=== PATIENT | male | born 1965 | race Hispanic/Latino ===

== ENCOUNTER 2016-10-27 13:22 | Emergency (ER) | payer OTHER ==
[~2016-10-27] VITALS: Ht 165.1 cm; Wt 63.5 kg
[2016-10-27 13:30] VITALS: BP 114/68
--- NOTE | 2016-10-27 14:51 | ED EYE COMPLAINT ---
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 STATES HE HAS BEEN RINSING IT OUT WITH WARM WATER BUT THIS AM WHEN HE WOKE UP HE COULD BARELY OPEN HIS EYE. L EYE NOTED TO BE RED. DENIES PAIN TO EYE AT THIS TIME. STATES VISION IS NORMAL IN L EYE. Triage Nurses Notes Reviewed? yes Onset: Abrupt Duration: constant Timing: recent history Severity: mild Severity Numbers: 3 HPI: Patient is a 51-year-old male who presents emergency and that yesterday while outside he believes that he got something stuck in his left eye and since she's been complaining of clear discharge foreign-body sensation blurred vision and mild discomfort to his eye. Tetanus is up-to-date. No medications given prior to arrival. Past History Travel History Traveled to [place] past 21 day No Medical History Any Pertinent Medical History? 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 No Review of Systems Review of Systems Constitutional: Reports: no symptoms. Eyes: Reports: see HPI, blurred vision, drainage, foreign body sensation, inflammation. Ear: Reports: no symptoms. Nose: Reports: no symptoms. Mouth: Reports: no symptoms. Throat: Reports: no symptoms. Respiratory: Reports: no symptoms. Cardiovascular: Reports: no symptoms. GI: Reports: no symptoms. Genitourinary: Reports: no symptoms. Musculoskeletal: Reports: no symptoms. Skin: Reports: no symptoms. Neurological/Psychological: Reports: no symptoms. Hematologic/Endocrine: Reports: no symptoms. Immunologic/Allergic: Reports: no symptoms. All Other Systems: Reviewed and Negative Physical Exam General Appearance: well developed/nourished, no apparent distress, alert General Inspection: SCLERAL INJECTION NOTED Eyelid: normal inspection Conjunctiva/Sclera: injected Cornea: examined w/fluorescein, foreign body, fluorescein dye uptake EOM: intact Pupil: normal accommodation, normal pupil, PERRL Anterior Chamber: normal inspection Eye Left 1) 1MM CIRCULAR WELL DEFINED FLUOROSCEINE UPTAKE NOTED General Inspection: normal inspection Eyelid: normal inspection Conjunctiva/Sclera: normal inspection Cornea: normal inspection EOM: intact Pupil: normal accommodation, normal pupil, PERRL Physical Exam Head: atraumatic Nose: normal inspection Mouth/Throat: normal mouth inspection Neck: normal inspection Neurologic/Psych: no motor/sensory deficits, awake, alert Skin: intact Progress Differential Diagnosis: corneal abrasion, corneal foreign body, conjunctivitis, detached retina, glaucoma, globe rupture, retinal art./v. occlusion Plan of Care: After FLOUROSCEINE uptake was performed there was noted concern of foreign body in which using a weighted cotton swab running over the foreign body there was a black speck that was removed Patient also had significant resolution of his presenting complaints afterwards. Patient was strongly advised however to follow up with ophthalmology tomorrow. Patient will be treated for corneal abrasion and resolved foreign body PT WAS PERRLA Departure Departure Disposition: HOME OR SELF CARE Condition: Stable Clinical Impression Primary Impression: Foreign body in eyeball, left Secondary Impressions: Corneal abrasion, left Referrals: UNKNOWN (PCP/Family) Additional Instructions: As discussed begin the prescription of Polytrim as directed for the full course, prescription is waiting at [facility] pharmacy. Tomorrow please follow-up with chin strap sewer Dr. Madison. If symptoms worsen return to emergency room Departure Forms: Customer Survey General Discharge Information Prescriptions: Current Visit Scripts Polytrim (Polytrim Eye Drops) 1 GTT OPH Q6 #10 ML
[2016-10-27] MEDS ORDERED: POLYTRIM EYE DR10 ML OPH (15:07)
== END 2016-10-27 15:14 ==
LOC: ERH 13:22
DX: T15.82XA Foreign body in other and multiple parts of external eye, left eye, initial encounter (principal); S05.02XA Injury of conjunctiva and corneal abrasion without foreign body, left eye, initial encounter